=== PATIENT | male | born 1955 | race Asian ===

== ENCOUNTER 2021-05-03 14:47 | Inpatient (IN) | payer OTHER ==
[~2021-05-03 14:47] MED LIST: Iopamidol-370 76% 500 ML 1 ML ONE
[2021-05-03] MEDS ORDERED: levETIRAcetam in NS 100 ML ONE ×2 (15:15→15:18)
[2021-05-03 15:25] LABS: #Lymphocytes 0.9 thou/uL (1.20-3.40); #Monocytes 0.8 thou/uL (0.11-0.59); #Neutrophils 12.7 thou/uL (1.40-6.50); %Basophils 0.3 % (0.0-1.0); %Eosinophils 0.2 % (0.0-10.0); %Lymphocytes 6.1 % (21.0-51.0); %Monocytes 5.5 % (0.0-10.0); %Neutrophils 87.9 % (42.0-75.0); Hemoglobin 14.8 g/dL (14.0-18.0); Mean Corpuscular HGB CONC 32.7 g/dL (32.0-36.0); Mean Corpuscular Hemoglobin 31.8 pg (27.0-31.0); Mean Corpuscular Volume 97.2 fL (78.0-98.0); Mean Platelet Volume 7.6 fL (7.4-10.4); Platelet Count 200 thou/uL (130-400); RBC Distribution Width 12.7 % (11.5-14.5); Red Blood Cell (RBC) Count 4.64 mill/uL (4.70-6.10); White Blood Cell (WBC) Count 14.5 thou/uL (4.8-10.8)
[2021-05-03] MEDS ORDERED: VALPROATE SODIUM IVPB SCH (15:30)
[2021-05-03] MEDS ORDERED: SODIUM CHLORIDE 0.9% IVPB SCH (15:30)
[2021-05-03 16:06] LABS: Albumin 4.2 g/dL (3.4-4.8)
[2021-05-03 16:07] LABS: Chloride 103 mmol/L (98-107); Sodium 136 mmol/L (136-145)
[2021-05-03 16:08] LABS: Calcium 8.8 mg/dL (7.8-10.44); Glucose 94 mg/dL (80-115)
[2021-05-03 16:09] LABS: Protein, Total 7.2 g/dL (5.8-8.1)
[2021-05-03 16:10] LABS: Anion Gap 16 mmol/L (10-20); Bilirubin, Total 0.3 mg/dL (0.2-1.2); Carbon Dioxide 22 mmol/L (23-31)
[2021-05-03 16:11] LABS: Alkaline Phosphatase 61 U/L (40-110)
[2021-05-03 16:12] LABS: Calc. Creatinine Clearance 0 mL/min (70-130)
[2021-05-03 16:13] LABS: AST (SGOT) 42 U/L (5-34); BUN (Urea Nitrogen) 10 mg/dL (8.4-25.7)
[2021-05-03 16:14] LABS: ALT (SGPT) 43 U/L (8-55)
[2021-05-03 16:16] LABS: Acetaminophen Less than 6.0 mcg/mL (10.0-30.0); Alcohol Less than 10 mg/dL (Less than 10); Salicylate Less than 8.0 mg/dL (15.0-30.0)
[2021-05-03 16:26] LABS: Prothrombin Time 13.7 sec (12.0-14.7)
[2021-05-03 16:31] LABS: PTT 19.2 sec (22.9-36.1)
[2021-05-03] MEDS ORDERED: Lorazepam 2 MG/ML VIAL ONE (20:26)
[2021-05-03 23:19] LABS: SARS-CoV-2 NAA Rapid Test Not Detected (NotDetected)
[2021-05-04] MEDS ORDERED: Lorazepam 2 MG/ML VIAL SLOW IVP PRN (00:37)
[2021-05-04] MEDS ORDERED: Ondansetron ODT 4 MG TAB PO PRN (01:12)
[2021-05-04] MEDS ORDERED: Ondansetron PF 4 MG/2 ML Vial IVP PRN (01:12)
[2021-05-04] MEDS ORDERED: Acetaminophen 650 MG Suppository PR PRN (01:12)
[2021-05-04] MEDS ORDERED: Acetaminophen 325 MG TAB PO PRN (01:12)
[2021-05-04] MEDS: levETIRAcetam in NS 1,000 MG in Premix Bag 1 BAG IVPB SCH ×2 (03:14→14:06)
[2021-05-04 05:25] VITALS: BMI 27.3
[2021-05-04 06:11] LABS: #Lymphocytes 2.6 thou/uL (1.20-3.40); #Monocytes 0.7 thou/uL (0.11-0.59); #Neutrophils 5.3 thou/uL (1.40-6.50); %Basophils 0.3 % (0.0-1.0); %Eosinophils 0.5 % (0.0-10.0); %Lymphocytes 30.2 % (21.0-51.0); %Monocytes 7.8 % (0.0-10.0); %Neutrophils 61.2 % (42.0-75.0); Hemoglobin 15.8 g/dL (14.0-18.0); Mean Corpuscular HGB CONC 31.3 g/dL (32.0-36.0); Mean Corpuscular Hemoglobin 30.4 pg (27.0-31.0); Mean Corpuscular Volume 97.1 fL (78.0-98.0); Mean Platelet Volume 7.3 fL (7.4-10.4); Platelet Count 198 thou/uL (130-400); RBC Distribution Width 12.8 % (11.5-14.5); White Blood Cell (WBC) Count 8.7 thou/uL (4.8-10.8)
[2021-05-04 06:32] LABS: Anion Gap 16 mmol/L (10-20); BUN (Urea Nitrogen) 8 mg/dL (8.4-25.7); Calc. Creatinine Clearance 93 mL/min (70-130); Calcium 9.2 mg/dL (7.8-10.44); Carbon Dioxide 23 mmol/L (23-31); Chloride 107 mmol/L (98-107); Glucose 86 mg/dL (80-115); Potassium 4.6 mmol/L (3.5-5.1); Sodium 141 mmol/L (136-145)
[2021-05-04] MEDS: Enoxaparin Sodium 40 MG/0.4 ML SYRINGE SC SCH (08:52)
[2021-05-04 16:37] LABS: CK (CPK) 804 U/L (30-200); Lipase 41 U/L (8-78)
[2021-05-04] MEDS ORDERED: Senokot 8.6 MG TAB PO PRN (16:59)
[2021-05-04] MEDS ORDERED: Docusate 100 MG CAP PO SCH (17:15)
[2021-05-04] MEDS ORDERED: Polyethylene Glycol 3350 17 GM Packet PO SCH (17:15)
[2021-05-04] MEDS: Docusate 100 MG CAP PO SCH (19:54)
[2021-05-05] MEDS: levETIRAcetam in NS 1,000 MG in Premix Bag 1 BAG IVPB SCH ×2 (02:36→14:51)
[2021-05-05] MEDS: Polyethylene Glycol 3350 17 GM Packet PO SCH (09:27)
[2021-05-05] MEDS: Docusate 100 MG CAP PO SCH (09:27)
[2021-05-05] MEDS: Enoxaparin Sodium 40 MG/0.4 ML SYRINGE SC SCH (09:28)
[2021-05-06] MEDS: Docusate 100 MG CAP PO SCH ×2 (02:04→08:32)
[2021-05-06] MEDS: levETIRAcetam in NS 1,000 MG in Premix Bag 1 BAG IVPB SCH ×2 (03:46→16:02)
[2021-05-06] MEDS: Enoxaparin Sodium 40 MG/0.4 ML SYRINGE SC SCH (08:32)
[2021-05-06] MEDS: Polyethylene Glycol 3350 17 GM Packet PO SCH (08:32)
[2021-05-06 16:02] VITALS: BP 108/60; TEMP 98.1
== END 2021-05-06 19:28 | DRG 101 ==
LOC: ERS 14:47 → EEVIPCON 14:47 → 3SE 05-04 00:06 → OBSVTOIN 05-04 15:48
PROVIDERS: ADMIT Student in an Organized Health Care Education/Training Program; ATTEND Internal Medicine
DX: G40.909 Epilepsy, unspecified, not intractable, without status epilepticus (principal); Z20.822 Contact with and (suspected) exposure to COVID-19; G93.9 Disorder of brain, unspecified; D72.829 Elevated white blood cell count, unspecified; R91.1 Solitary pulmonary nodule; I65.02 Occlusion and stenosis of left vertebral artery; G93.89 Other specified disorders of brain; T42.6X5A Adverse effect of other antiepileptic and sedative-hypnotic drugs, initial encounter; Z91.14 Patient's other noncompliance with medication regimen; Z79.899 Other long term (current) drug therapy
CPT/HCPCS: 36415; 70496; 70498; 71045; 74018; 74177; 76705; 80048; 80053; 80061; 80185; 80307; 82140; 82550; 83605; 83690; 84146; 84443; 84484; 85025; 85610; 85730; 93005; 93010; 95712; 95819; 95957; 96372; 96376; G0378; J1650; J1953; J2060; J3490; Q9967; U0002

== ENCOUNTER 2021-12-23 16:51 | Inpatient (IN) | payer OTHER ==
[2021-12-23 18:24] LABS: Prothrombin Time 12.9 sec (12.0-14.7)
[2021-12-23 18:25] LABS: PTT 26.2 sec (22.9-36.1)
[2021-12-23] MEDS ORDERED: Acetaminophen 325 MG TAB PO PRN (19:57)
[2021-12-23] MEDS ORDERED: Ondansetron PF 4 MG/2 ML Vial IVP PRN (19:57)
[2021-12-23] MEDS ORDERED: Labetalol HCl 100 MG/20 ML VIAL SLOW IVP PRN (19:58)
[2021-12-23] MEDS ORDERED: Lorazepam 2 MG/ML VIAL SLOW IVP PRN (20:04)
[2021-12-23] MEDS ORDERED: Famotidine 20 MG TAB PO SCH (21:00)
[2021-12-23] MEDS: levETIRAcetam 500 MG/5 ML VIAL SLOW IVP SCH (22:11)
[2021-12-23 22:32] LABS: SARS-CoV-2 NAA Rapid Test Not Detected (NotDetected)
[2021-12-24] MEDS ORDERED: levETIRAcetam in NS 1,500 MG in Premix Bag 1 BAG IVPB SCH (02:00)
[2021-12-24 03:58] LABS: #Eosinphils 0.1 thou/uL (0.0-0.7); #Lymphocytes 1.6 thou/uL (1.20-3.40); #Monocytes 0.8 thou/uL (0.11-0.59); #Neutrophils 10.1 thou/uL (1.40-6.50); %Basophils 0.2 % (0.0-1.0); %Eosinophils 0.4 % (0.0-10.0); %Lymphocytes 12.7 % (21.0-51.0); %Monocytes 6.6 % (0.0-10.0); %Neutrophils 80.1 % (42.0-75.0); Hemoglobin 15.5 g/dL (14.0-18.0); Mean Corpuscular HGB CONC 30.8 g/dL (32.0-36.0); Mean Corpuscular Hemoglobin 30.2 pg (27.0-31.0); Mean Corpuscular Volume 98.1 fL (78.0-98.0); Mean Platelet Volume 7.2 fL (7.4-10.4); Platelet Count 236 thou/uL (130-400); Red Blood Cell (RBC) Count 5.13 mill/uL (4.70-6.10); White Blood Cell (WBC) Count 12.6 thou/uL (4.8-10.8)
[2021-12-24 04:20] LABS: Anion Gap 14 mmol/L (10-20); BUN (Urea Nitrogen) 7 mg/dL (8.4-25.7); Calc. Creatinine Clearance 79 mL/min (70-130); Calcium 8.8 mg/dL (7.8-10.44); Carbon Dioxide 20 mmol/L (23-31); Chloride 108 mmol/L (98-107); Glucose 98 mg/dL (80-115); Potassium 3.9 mmol/L (3.5-5.1); Sodium 138 mmol/L (136-145)
[2021-12-24] MEDS: levETIRAcetam 500 MG/5 ML VIAL SLOW IVP SCH ×2 (08:18→21:09)
[2021-12-24] MEDS: Famotidine/PF 20 mg/2ml Vial SLOW IVP SCH ×2 (08:21→21:09)
[2021-12-24 12:56] VITALS: BMI 21.2
[2021-12-24 17:28] LABS: Amphetamine Not Detected (NotDetected); Barbiturates Screen Not Detected (NotDetected); Benzodiazepine Screen Detected (NotDetected); Cocaine Metabolite Screen Not Detected (NotDetected); Methadone Not Detected (NotDetected); Methamphetamine Not Detected (NotDetected); Opiate Screen Not Detected (NotDetected); Oxycodone Screen Not Detected (NotDetected); Phencyclidine (PCP) Not Detected (NotDetected); THC/Cannabinoid Screen Not Detected (NotDetected); Tricyclic Screen Not Detected (NotDetected)
[2021-12-24] MEDS: Atorvastatin Calcium 40 MG TAB PO SCH (21:09)
[2021-12-25 05:21] LABS: Mean Corpuscular HGB CONC 30.8 g/dL (32.0-36.0); Mean Corpuscular Hemoglobin 30.5 pg (27.0-31.0); Mean Corpuscular Volume 99.1 fL (78.0-98.0); Mean Platelet Volume 7.2 fL (7.4-10.4); Platelet Count 238 thou/uL (130-400); RBC Distribution Width 11.9 % (11.5-14.5); Red Blood Cell (RBC) Count 5.23 mill/uL (4.70-6.10); White Blood Cell (WBC) Count 10.7 thou/uL (4.8-10.8)
[2021-12-25 05:58] LABS: BUN (Urea Nitrogen) 14 mg/dL (8.4-25.7); Calc. Creatinine Clearance 77 mL/min (70-130); Carbon Dioxide 14 mmol/L (23-31); Chloride 110 mmol/L (98-107); Glucose 92 mg/dL (80-115); Sodium 138 mmol/L (136-145)
[2021-12-25 06:02] LABS: Anion Gap 18 mmol/L (10-20)
[2021-12-25] MEDS: Famotidine/PF 20 mg/2ml Vial SLOW IVP SCH (08:55)
[2021-12-25] MEDS: levETIRAcetam 500 MG/5 ML VIAL SLOW IVP SCH (08:56)
[2021-12-25] MEDS: Atorvastatin Calcium 40 MG TAB PO SCH (21:11)
[2021-12-25] MEDS: Famotidine 20 MG TAB PO SCH (21:11)
[2021-12-25] MEDS: levETIRAcetam 500 MG TAB PO SCH (21:11)
[2021-12-26 05:48] LABS: Anion Gap 13 mmol/L (10-20); BUN (Urea Nitrogen) 16 mg/dL (8.4-25.7); Calc. Creatinine Clearance 80 mL/min (70-130); Calcium 9.1 mg/dL (7.8-10.44); Carbon Dioxide 23 mmol/L (23-31); Chloride 107 mmol/L (98-107); Glucose 110 mg/dL (80-115); Sodium 139 mmol/L (136-145)
[2021-12-26] MEDS: levETIRAcetam 500 MG TAB PO SCH (09:14)
[2021-12-26] MEDS: Famotidine 20 MG TAB PO SCH (09:14)
[2021-12-26 16:17] VITALS: BP 109/70; TEMP 97.5
[2021-12-26] MEDS ORDERED: Terazosin HCl 5 MG CAP PO SCH (21:00)
== END 2021-12-26 16:39 | DRG 64 ==
LOC: ERS 16:51 → CCU 19:01 → EEVIPCON 19:01 → CCU 12-24 05:34 → NEURO 12-24 13:11
PROVIDERS: ADMIT Internal Medicine; ATTEND Internal Medicine
DX: I62.00 Nontraumatic subdural hemorrhage, unspecified (principal); G92.8 Other toxic encephalopathy; G40.909 Epilepsy, unspecified, not intractable, without status epilepticus; Z20.822 Contact with and (suspected) exposure to COVID-19; I10 Essential (primary) hypertension; E78.5 Hyperlipidemia, unspecified; N40.0 Benign prostatic hyperplasia without lower urinary tract symptoms; F43.20 Adjustment disorder, unspecified; I44.7 Left bundle-branch block, unspecified; G93.89 Other specified disorders of brain; R47.01 Aphasia; M50.322 Other cervical disc degeneration at C5-C6 level; R91.1 Solitary pulmonary nodule; Z79.899 Other long term (current) drug therapy; Z98.1 Arthrodesis status
CPT/HCPCS: 36415; 70450; 80048; 80306; 85025; 85027; 85610; 85730; 95712; 95819; 95957; J1953; S0028; U0002